=== PATIENT | male | born 1960 | race Caucasian/White ===

== ENCOUNTER 2023-07-03 01:30 | Inpatient (IN) | payer OTHER ==
[~2023-07-03] VITALS: Ht 175.3 cm; Wt 99.8 kg
[2023-07-03] VITALS (12 sets, daily range): BP systolic 100–207; BP diastolic 64–160; PULSE 71–132; RESP 16–35; TEMP 96.2–97.9; O2SAT 94–100
[2023-07-03] MEDS ORDERED: LABETALOL 20 MG/4 ML VIAL IVP ONE (01:40)
[2023-07-03] MEDS ORDERED: FUROSEMIDE 40 MG/4 ML VIAL IVP ONE (01:50)
[2023-07-03] MEDS ORDERED: cefTRIAXone 1,000 MG VIAL ONE (01:57)
[2023-07-03 02:00] LABS: BASOPHILS # (AUTO) 0.1 K/uL (0.00-0.22); BASOPHILS % (AUTO) 0.5 % (0.0-2.0); EOSINOPHILS # (AUTO) 0.4 K/uL (0-0.4); EOSINOPHILS % (AUTO) 2.5 % (0.0-4.0); HEMATOCRIT 43.6 % (36-52); LYMPHOCYTES # (AUTO) 1.7 K/uL (2.0-11.5); MEAN CORPUSCULAR HEMOGLOBIN 32 pg (27-31); MEAN CORPUSCULAR HGB CONC 35 g/dL (33-37); MEAN CORPUSCULAR VOLUME 91.8 fL (80-94); MONOCYTES % (AUTO) 6.5 % (1.7-9.3); NEUTROPHILS # (AUTO) 12.6 K/uL (1.8-7.7); NEUTROPHILS % (AUTO) 79.5 % (42.2-75.2); PLATELET COUNT (AUTO) 316 K/uL (140-450); RED BLOOD CELL COUNT(AUTO) 4.75 MIL/uL (4.20-6.10); WHITE BLOOD COUNT (AUTO) 15.8 K/uL (4.8-10.8)
[2023-07-03 02:18] LABS: ALBUMIN 2.8 g/dL (3.4-5.0); ANION GAP 15.8 (8-16); CALCIUM 8.1 mg/dL (8.5-10.1); CREATININE 1.6 mg/dL (0.6-1.3); POTASSIUM 3.8 mmol/L (3.5-5.1); TOTAL BILIRUBIN 0.4 mg/dL (0.0-1.0); TOTAL PROTEIN, SERUM 6.7 g/dL (6.4-8.2)
[2023-07-03 02:27] LABS: LACTIC ACID 2.1 mmol/L (0.4-2.0)
[2023-07-03 02:27] LABS: BLOOD GAS PH 7.327 (7.35-7.45)
[2023-07-03 02:28] LABS: BLOOD GAS BASE EXCESS -7.2 mmol/L (-2.0-2.0); BLOOD GAS HCO3 17.9 mmol/L (22-26); BLOOD GAS PCO2 34.9 mmHg (35-45); BLOOD GAS PO2 226.8 mmHg (75-100)
[2023-07-03 02:29] LABS: BLOOD GAS O2 SAT% 99.4 % (92.0-98.5)
[2023-07-03] MEDS ORDERED: ASPIRIN 325 MG TAB PO ONE (02:50)
[2023-07-03] MEDS ORDERED: LISI40TA8 PO (03:07)
[2023-07-03] MEDS ORDERED: GLIP5TAB13 PO (03:07)
[2023-07-03] MEDS ORDERED: AMLO10TA89 PO (03:07)
[2023-07-03 04:51] LABS: APPEARANCE,URINE CLEAR (CLEAR); BILIRUBIN,URINE NEGATIVE (NEGATIVE); BLOOD, URINE 1+ (NEGATIVE); COLOR,URINE YELLOW (YELLOW); LEUKOCYTE ESTERASE ,URINE NEGATIVE (NEGATIVE); NITRITE, URINE NEGATIVE (NEGATIVE); PH,URINE 5.5 (5.0-9.0); PROTEIN,URINE 3+ (NEGATIVE); UGLUCOSE NEGATIVE (NEGATIVE); UROBILINOGEN,URINE 0.2 EU/dL (0.2 - 1)
[2023-07-03 05:07] LABS: BACTERIA,URINE 10-30 (MOD) /HPF (None Seen); RBC,URINE 0-5 /HPF (0-5); WBC,URINE 0-5 /HPF (0-5)
[2023-07-03 05:08] LABS: MUCUS,URINE 1+ /LPF (None Seen); SQUAMOUS EPITHELIAL CELL,UR 0-3 (FEW) /LPF (0-3 (FEW))
[2023-07-03] MEDS ORDERED: ZOLPIDEM 5 MG TAB PO PRN (05:25)
[2023-07-03] MEDS ORDERED: HYDROcodone/APAP 7.5/325 MG 1 TAB PO PRN (05:25)
[2023-07-03] MEDS ORDERED: DOCUSATE SODIUM 100 MG GELCAP PO PRN (05:25)
[2023-07-03] MEDS ORDERED: guaiFENesin DM 200/20 MG-10 ML 10 ML UDC PO PRN (05:25)
[2023-07-03] MEDS ORDERED: ACETAMINOPHEN 325 MG TAB PO PRN (05:25)
[2023-07-03] MEDS ORDERED: POTASSIUM CHLORIDE 10 MEQ TABER PO PRN (05:25)
[2023-07-03] MEDS ORDERED: ONDANSETRON 4 MG/2 ML VIAL IM/IVP PRN (05:25)
[2023-07-03] MEDS ORDERED: HEPARIN PER PHARMACY MC PRN ×2 (06:30→07:10)
[2023-07-03 06:40] LABS: BASOPHILS % (AUTO) 0.4 % (0.0-2.0); EOSINOPHILS % (AUTO) 0.5 % (0.0-4.0); HEMOGLOBIN 13.5 g/dL (12.0-18.0); LYMPHOCYTES # (AUTO) 0.9 K/uL (2.0-11.5); LYMPHOCYTES % (AUTO) 8.8 % (20.5-51.1); MEAN CORPUSCULAR HEMOGLOBIN 32 pg (27-31); MEAN CORPUSCULAR HGB CONC 35 g/dL (33-37); MEAN CORPUSCULAR VOLUME 90.9 fL (80-94); MONOCYTES # (AUTO) 1.1 K/uL (0.8-1.0); MONOCYTES % (AUTO) 10.7 % (1.7-9.3); NEUTROPHILS # (AUTO) 8.1 K/uL (1.8-7.7); NEUTROPHILS % (AUTO) 79.6 % (42.2-75.2); PLATELET COUNT (AUTO) 280 K/uL (140-450); RED BLOOD CELL COUNT(AUTO) 4.29 MIL/uL (4.20-6.10); WHITE BLOOD COUNT (AUTO) 10.2 K/uL (4.8-10.8)
[2023-07-03 06:53] LABS: ALBUMIN 2.6 g/dL (3.4-5.0); ANION GAP 14.6 (8-16); CALCIUM 8.1 mg/dL (8.5-10.1); CREATININE 1.5 mg/dL (0.6-1.3); POTASSIUM 4.6 mmol/L (3.5-5.1); TOTAL BILIRUBIN 0.3 mg/dL (0.0-1.0); TOTAL PROTEIN, SERUM 6.3 g/dL (6.4-8.2)
[2023-07-03] MEDS ORDERED: ALBUTEROL SULFATE/IPRATROPIU 3 ML SOL IH PRN (07:10)
[2023-07-03] MEDS ORDERED: DEXTROSE 50% 50 ML SYR IVP PRN (07:10)
[2023-07-03] MEDS: NACL 0.9% 1,000 ML IV SCH ×2 (08:14→22:28)
[2023-07-03] MEDS: BLOOD GLUCOSE MONITORING 1 DEV DEV FS SCH ×4 (08:20→20:41)
[2023-07-03] MEDS: hePARIN / DEXT 5% PREMIX 250 ML IV SCH ×3 (08:37→23:55)
[2023-07-03] MEDS: PANTOPRAZOLE 40 MG TABEC PO SCH (09:00)
[2023-07-03] MEDS ORDERED: ATORVASTATIN 20 MG TAB PO SCH (09:00)
[2023-07-03] MEDS: ECOTRIN 81 MG TABEC PO SCH (09:00)
[2023-07-03] MEDS ORDERED: NON-FORMULARY ITEM (Amlodipine Besylate (Amlodipine) 10 MG) PO SCH (09:00)
[2023-07-03] MEDS ORDERED: NON-FORMULARY ITEM (Lisinopril 1 TAB) PO SCH (09:00)
[2023-07-03] MEDS: FUROSEMIDE 40 MG/4 ML VIAL IVP SCH (10:16)
[2023-07-03] MEDS ORDERED: hydrALAZINE 20 MG/ML VIAL IVP PRN (12:40)
[2023-07-03] MEDS: PIPERACILLIN/TAZOBACTAM 3.375 GM in DEXTROSE 5% 50 ML IV SCH ×2 (14:25→20:36)
[2023-07-03] MEDS: carvediloL 6.25 MG TAB PO SCH (20:36)
[2023-07-03] MEDS: INSULIN LISPRO SLIDING SCALE 100 UNITS/ML VIAL SUBQ PRN (20:47)
[2023-07-04] VITALS (9 sets, daily range): BP systolic 127–167; BP diastolic 67–92; PULSE 80–98; RESP 15–18; TEMP 97–98.6; O2SAT 94–98
[2023-07-04] MEDS: PIPERACILLIN/TAZOBACTAM 3.375 GM in DEXTROSE 5% 50 ML IV SCH ×3 (04:19→20:44)
[2023-07-04] MEDS: hePARIN / DEXT 5% PREMIX 250 ML IV SCH ×4 (05:34→21:10)
[2023-07-04 06:26] LABS: BASOPHILS % (AUTO) 0.5 % (0.0-2.0); EOSINOPHILS # (AUTO) 0.2 K/uL (0-0.4); EOSINOPHILS % (AUTO) 3.1 % (0.0-4.0); HEMATOCRIT 37.3 % (36-52); HEMOGLOBIN 13.1 g/dL (12.0-18.0); LYMPHOCYTES % (AUTO) 13.4 % (20.5-51.1); MEAN CORPUSCULAR HEMOGLOBIN 31 pg (27-31); MEAN CORPUSCULAR HGB CONC 35 g/dL (33-37); MEAN CORPUSCULAR VOLUME 89.5 fL (80-94); MONOCYTES # (AUTO) 0.8 K/uL (0.8-1.0); MONOCYTES % (AUTO) 11.5 % (1.7-9.3); NEUTROPHILS # (AUTO) 5.1 K/uL (1.8-7.7); NEUTROPHILS % (AUTO) 71.5 % (42.2-75.2); PLATELET COUNT (AUTO) 263 K/uL (140-450); RED BLOOD CELL COUNT(AUTO) 4.17 MIL/uL (4.20-6.10); RED CELL DISTRIBUTION WIDTH 13.1 % (11.6-13.7); WHITE BLOOD COUNT (AUTO) 7.1 K/uL (4.8-10.8)
[2023-07-04] MEDS: BLOOD GLUCOSE MONITORING 1 DEV DEV FS SCH ×4 (06:30→20:47)
[2023-07-04 06:34] LABS: ALBUMIN 2.7 g/dL (3.4-5.0); ANION GAP 15.1 (8-16); CALCIUM 8.5 mg/dL (8.5-10.1); CARBON DIOXIDE 21.8 mmol/L (21-32); CREATININE 1.5 mg/dL (0.6-1.3); POTASSIUM 3.9 mmol/L (3.5-5.1); TOTAL BILIRUBIN 0.5 mg/dL (0.0-1.0); TOTAL PROTEIN, SERUM 6.4 g/dL (6.4-8.2)
[2023-07-04] MEDS ORDERED: lisinopriL 20 MG TAB PO SCH (09:00)
[2023-07-04] MEDS: carvediloL 6.25 MG TAB PO SCH ×2 (09:25→20:44)
[2023-07-04] MEDS: ATORVASTATIN 80 MG TAB PO SCH (09:26)
[2023-07-04] MEDS: amLODIPine 5 MG TAB PO SCH (09:26)
[2023-07-04] MEDS: ECOTRIN 81 MG TABEC PO SCH (09:27)
[2023-07-04] MEDS: PANTOPRAZOLE 40 MG TABEC PO SCH (09:28)
[2023-07-04] MEDS: FUROSEMIDE 40 MG/4 ML VIAL IVP SCH (09:28)
[2023-07-04 13:20] LABS: INR 0.92 (0.8-1.2); PROTHROMBIN TIME 9.7 secs (10.8-13.4)
[2023-07-04] MEDS: NACL 0.9% 1,000 ML IV SCH (18:24)
[2023-07-04] MEDS: INSULIN LISPRO SLIDING SCALE 100 UNITS/ML VIAL SUBQ PRN (20:47)
[2023-07-05] VITALS: BP 132/65; PULSE 86; PULSE 87; RESP 18; TEMP 98.1; O2SAT 98
[2023-07-05] MEDS: hePARIN / DEXT 5% PREMIX 250 ML IV SCH ×2 (00:01→05:11)
[2023-07-05 04:00] VITALS: BP 127/67; PULSE 79; PULSE 80; RESP 18; TEMP 98; O2SAT 96
[2023-07-05] MEDS: PIPERACILLIN/TAZOBACTAM 3.375 GM in DEXTROSE 5% 50 ML IV SCH (04:43)
[2023-07-05 06:40] LABS: ALBUMIN 2.8 g/dL (3.4-5.0); ANION GAP 13.2 (8-16); CALCIUM 8.3 mg/dL (8.5-10.1); CARBON DIOXIDE 23.6 mmol/L (21-32); CREATININE 1.6 mg/dL (0.6-1.3); POTASSIUM 3.8 mmol/L (3.5-5.1); TOTAL BILIRUBIN 0.6 mg/dL (0.0-1.0); TOTAL PROTEIN, SERUM 6.3 g/dL (6.4-8.2)
[2023-07-05] MEDS: BLOOD GLUCOSE MONITORING 1 DEV DEV FS SCH (06:43)
[2023-07-05 06:44] LABS: BASOPHILS % (AUTO) 0.5 % (0.0-2.0); EOSINOPHILS # (AUTO) 0.3 K/uL (0-0.4); EOSINOPHILS % (AUTO) 4.4 % (0.0-4.0); HEMOGLOBIN 12.4 g/dL (12.0-18.0); LYMPHOCYTES # (AUTO) 1.2 K/uL (2.0-11.5); LYMPHOCYTES % (AUTO) 17.7 % (20.5-51.1); MEAN CORPUSCULAR HEMOGLOBIN 32 pg (27-31); MEAN CORPUSCULAR HGB CONC 35 g/dL (33-37); MEAN CORPUSCULAR VOLUME 89.2 fL (80-94); MONOCYTES # (AUTO) 0.9 K/uL (0.8-1.0); MONOCYTES % (AUTO) 13.2 % (1.7-9.3); NEUTROPHILS # (AUTO) 4.2 K/uL (1.8-7.7); NEUTROPHILS % (AUTO) 64.2 % (42.2-75.2); PLATELET COUNT (AUTO) 271 K/uL (140-450); RED BLOOD CELL COUNT(AUTO) 3.92 MIL/uL (4.20-6.10); RED CELL DISTRIBUTION WIDTH 12.5 % (11.6-13.7); WHITE BLOOD COUNT (AUTO) 6.5 K/uL (4.8-10.8)
[2023-07-05] MEDS ORDERED: LIP80 PO (07:34)
[2023-07-05] MEDS ORDERED: CARV6.252 PO (07:34)
[2023-07-05] MEDS ORDERED: ASPI-1856 PO (07:34)
[2023-07-05 08:00] VITALS: BP 154/77; PULSE 79; PULSE 81; RESP 20; TEMP 97.3; O2SAT 3; O2SAT 98
[2023-07-05] MEDS: FUROSEMIDE 40 MG/4 ML VIAL IVP SCH (09:28)
[2023-07-05] MEDS: ECOTRIN 81 MG TABEC PO SCH (09:28)
[2023-07-05] MEDS: amLODIPine 5 MG TAB PO SCH (09:29)
[2023-07-05] MEDS: PANTOPRAZOLE 40 MG TABEC PO SCH (09:29)
[2023-07-05] MEDS: ATORVASTATIN 80 MG TAB PO SCH (09:30)
[2023-07-05] MEDS: carvediloL 6.25 MG TAB PO SCH (09:30)
== END 2023-07-05 10:05 | disposition short-term general hospital (02) | DRG 871 ==
LOC: MED 01:30 → MTU 05:25
PROVIDERS: ADMIT Student in an Organized Health Care Education/Training Program; ATTEND Student in an Organized Health Care Education/Training Program
PROC: 5A09357 Assistance with Respiratory Ventilation, Less than 24 Consecutive Hours, Continuous Positive Airway Pressure (ICD-10-PCS; principal; 2023-07-03)
DX: A41.9 Sepsis, unspecified organism (principal); I21.4 Non-ST elevation (NSTEMI) myocardial infarction; J69.0 Pneumonitis due to inhalation of food and vomit; J96.01 Acute respiratory failure with hypoxia; I50.23 Acute on chronic systolic (congestive) heart failure; E44.0 Moderate protein-calorie malnutrition; E87.1 Hypo-osmolality and hyponatremia; I42.9 Cardiomyopathy, unspecified; I13.0 Hypertensive heart and chronic kidney disease with heart failure and stage 1 through stage 4 chronic kidney disease, or unspecified chronic kidney disease; N39.0 Urinary tract infection, site not specified; N18.30 Chronic kidney disease, stage 3 unspecified; E11.22 Type 2 diabetes mellitus with diabetic chronic kidney disease; E11.51 Type 2 diabetes mellitus with diabetic peripheral angiopathy without gangrene; Z79.899 Other long term (current) drug therapy; Z68.32 Body mass index [BMI] 32.0-32.9, adult
CPT/HCPCS: 36415; 36600; 71045; 71275; 80053; 81001; 82803; 82948; 83605; 83880; 84484; 85025; 85379; 85610; 85730; 87040; 87081; 87086; 93005; 94660; 96365; 96375; 97163-GP; 97530; 99291; J0696; J1644; J1940; J2543; J3490; J7060; Q0092; Q9967